=== PATIENT | male | born 1960 | race Caucasian/White ===

== ENCOUNTER 2024-01-18 09:05 | Emergency (ER) | payer OTHER ==
[~2024-01-18] VITALS: Ht 193 cm; Wt 118.4 kg
[2024-01-18 09:35] LABS: BASOPHILS # (AUTO) 0.1 K/uL (0.0-0.2); BASOPHILS % (AUTO) 0.7 % (0.0-2.0); EOSINOPHILS # (AUTO) 0.2 K/uL (0.0-0.7); EOSINOPHILS % (AUTO) 1.8 % (0.0-6.0); HEMATOCRIT 43 % (39-51); HEMOGLOBIN 14.9 g/dL (13.5-17.5); LYMPHOCYTES # (AUTO) 1.9 K/uL (0.8-4.8); LYMPHOCYTES % (AUTO) 20.5 % (20.0-44.0); MEAN CORPUSCULAR HEMOGLOBIN 30 PG (26.0-33.0); MEAN CORPUSCULAR HGB CONC 35 g/dl (31.0-36.0); MEAN CORPUSCULAR VOLUME 87 fL (80-96); MONOCYTES # (AUTO) 0.7 K/uL (0.1-1.30); MONOCYTES % (AUTO) 7.6 % (2.0-12.0); NEUTROPHILS # (AUTO) 6.4 K/uL (1.8-8.9); NEUTROPHILS % (AUTO) 69.4 % (43.0-81.0); PLATELET COUNT (AUTO) 279 K/uL (150-450); RED BLOOD CELL COUNT(AUTO) 4.97 MIL/uL (4.5-6.0); RED CELL DISTRIBUTION WIDTH 13.6 % (11.5-15.0); WHITE BLOOD COUNT (AUTO) 9.2 K/uL (4.3-11.0)
[2024-01-18 09:51] LABS: CALCIUM, SERUM 8.1 mg/dL (8.5-10.1); CARBON DIOXIDE 26 mmol/L (21-32); CHLORIDE 100 mmol/L (98-107); CREATININE 1.3 mg/dL (0.6-1.3); GLUCOSE 142 mg/dL (74-106); POTASSIUM 3.7 mmol/L (3.5-5.1); SODIUM SERUM 124 mmol/L (136-145); UREA NITROGEN, BLOOD 18 mg/dL (7-18)
[2024-01-18] MEDS: IV NS 0.9% 1,000 ML BAG IV ONE (10:22)
[2024-01-18] MEDS ORDERED: KETOROLAC TROMETHAMINE 15 MG/ML VIAL ONE (10:24)
[2024-01-18] MEDS ORDERED: KETOROLAC TROMETHAMINE 15 MG/ML VIAL IV ONE (10:30)
[2024-01-18 10:42] VITALS: BP 141/60; TEMP 98; O2SAT 99
== END 2024-01-18 10:43 | disposition home or self-care (01) ==
LOC: ER 09:11
DX: L72.8 Other follicular cysts of the skin and subcutaneous tissue (principal); R07.89 Other chest pain; E87.1 Hypo-osmolality and hyponatremia; R03.0 Elevated blood-pressure reading, without diagnosis of hypertension; Z60.2 Problems related to living alone
CPT/HCPCS: 99284; 96360; 71045; 85025; 80048; 36415; 84484; J7030; J1885